=== PATIENT | female | born 1985 | race Caucasian/White ===

== ENCOUNTER 2017-04-03 20:12 | Emergency (ER) | payer MEDICAID, OTHER ==
[~2017-04-03] VITALS: Ht 162.6 cm; Wt 70.5 kg
[2017-04-03 20:15] VITALS: Ht 162.6 cm; Wt 70.5 kg
[2017-04-03 21:50] LABS: ADD UMIC YES; UR ASCORBIC ACID 40 mg/dL (NEGATIVE); UR BILIRUBIN (Dip) NEGATIVE (NEGATIVE); UR BLOOD (Dip) NEGATIVE (NEGATIVE); UR CLARITY SLIGHTLY CLOUDY (CLEAR); UR COLOR YELLOW (YELLOW); UR GLUCOSE (Dip) NEGATIVE (NEGATIVE); UR KETONES (Dip) TRACE mg/dL (NEGATIVE); UR LEUKOCYTE ESTERASE (Dip) 3+ Leu/ul (NEGATIVE); UR MUCUS MODERATE /HPF (NONE SEEN); UR NITRITE (Dip) NEGATIVE (NEGATIVE); UR RBC 5 /HPF (0-5); UR SPECIFIC GRAVITY (Dip) 1.031 (1.003-1.030); UR SQUAMOUS EPITHELIAL CELL MODERATE /HPF (FEW); UR TOTAL PROTEIN (Dip) NEGATIVE (NEGATIVE); UR UROBILINOGEN (Dip) NEGATIVE (NEGATIVE)
[2017-04-03 22:12] LABS: BASOPHILS % 0.4 % (0.0-2.0); EOSINOPHILS # 0.1 10^3/ul (0.0-0.5); EOSINOPHILS % 0.8 % (0.0-7.0); HEMATOCRIT 37.9 % (37.0-47.0); HEMOGLOBIN 12.8 g/dl (12.0-16.0); LYMPHOCYTES # 2.5 10^3/ul (0.8-2.9); MEAN CORPUSCULAR HEMOGLOBIN 29.4 pg (29.0-33.0); MEAN CORPUSCULAR HGB CONC 33.8 g/dl (32.0-37.0); MEAN CORPUSCULAR VOLUME 86.9 fl (82.0-101.0); MEAN PLATELET VOLUME 11.2 fl (7.4-10.4); MONOCYTE # 0.7 10^3/ul (0.3-0.9); MONOCYTES % 7.4 % (0.0-11.0); NEUTROPHIL # 5.7 10^3/ul (1.6-7.5); PLATELET COUNT 255 10^3/UL (140-415); RED BLOOD COUNT 4.36 10^6/ul (4.20-5.40); RED CELL DISTRIBUTION WIDTH 14.5 % (11.5-14.5)
--- NOTE | 2017-04-03 22:15 | ERD ---
ER Documentation Chief Complaint Date/Time DATE: 04/03/17 TIME: 22:11 Chief Complaint 5 weeks , pelvic pain HPI Patient is a 32-year-old female, approximately 5 weeks , , who presents to the emergency department for concerns of right sided pelvic pain and suprapubic pain. Patient states pain started 2 days ago. Patient describes the pain to be episodic in nature. Patient describes the pain to be sharp in nature. Patient denies any vaginal bleeding. Patient does admit to nausea however she denies any vomiting. Patient denies any fevers, chills, upper abdominal pain, dysuria, frequency, urgency or diarrhea. Patient states her [employer] is , however she has not seen them yet for this patient states her last menstrual period was on 02-17-17. ROS All systems reviewed and are negative except as per history of present illness. Medications Home Meds Active Scripts Acetaminophen* (Tylophen*) 500 Mg Capsule, 1 CAP PO Q6H Y for PAIN AND OR ELEVATED TEMP, #20 CAP Prov:MARITA GARNER PA-C 04/03/17 Cephalexin* (Keflex*) 500 Mg Capsule, 500 MG PO TID for 7 Days, CAP Prov:MARITA GARNER PA-C 04/03/17 Allergies Allergies: Coded Allergies: No Known Allergy (Unverified , 04/03/17) PMhx/Soc Medical and Surgical Hx: pt denies Medical Hx, pt denies Surgical Hx History of Surgery: No Anesthesia Reaction: No Hx Neurological Disorder: No Hx Respiratory Disorders: No Hx Cardiac Disorders: No Hx Psychiatric Problems: No Hx Miscellaneous Medical Probl: Yes (OVARIAN CYST) Hx Alcohol Use: No Hx Substance Use: No Hx Tobacco Use: No Smoking Status: Never smoker Physical Exam Vitals Vital Signs Date Time Temp Pulse Resp B/P Pulse Ox O2 Delivery O2 Flow Rate FiO2 04/03/17 20:15 98.6 78 20 124/76 99 Physical Exam GENERAL: Well-developed, well-nourished female. Appears in no acute distress. Speaking in full sentences HEAD: Normocephalic, atraumatic. EYES: Pupils are equally reactive bilaterally. EOMs grossly intact. No conjunctival erythema. ENT: Moist mucous membranes. No uvula deviation. No kissing tonsils. NECK: Supple. No meningismus. Normal range of motion of the neck. LUNG: Clear to auscultation bilaterally. No rhonchi, wheezing, rales or coarse breath sounds. HEART: Regular rate and rhythm. No murmurs, rubs or gallops. ABDOMEN: Soft and nondistended. Tender to palpation in the right pelvic region and suprapubic region positive bowel sounds in all four quadrants. No rebound tenderness, no guarding. (-) McBurney's point tenderness. No CVA tenderness bilaterally. EXTREMITIES: Equal pulses bilaterally. No peripheral clubbing, cyanosis or edema. No unilateral leg swelling. NEUROLOGIC: Alert and oriented. Moving all four extremities without any difficulty. Normal speech. Steady gait. SKIN: Normal color. Warm and dry. No rashes or lesions. Result Diagram: 04/03/172127 Results 24 hrs Laboratory Tests Test 04/03/17 21:18 04/03/17 21:28 Urine Color YELLOW Urine Clarity SLIGHTLY CLOUDY Urine pH 5.0 Urine Specific [place] 1.031 Urine Ketones TRACEmg/dL Urine Nitrite NEGATIVEmg/dL Urine Bilirubin NEGATIVEmg/dL Urine Urobilinogen NEGATIVEmg/dL Urine Leukocyte Esterase 3+Raffi/ul Urine Microscopic RBC 5/HPF Urine Microscopic WBC 38/HPF Urine Squamous Epithelial Cells MODERATE/HPF Urine Mucus MODERATE/HPF Urine Hemoglobin NEGATIVEmg/dL Urine Glucose NEGATIVEmg/dL Urine Total Protein NEGATIVEmg/dl White Blood Count 9.010^3/ul Red Blood Count 4.3610^6/ul Hemoglobin 12.8g/dl Hematocrit 37.9% Mean Corpuscular Volume 86.9fl Mean Corpuscular Hemoglobin 29.4pg Mean Corpuscular Hemoglobin Concent 33.8g/dl Red Cell Distribution Width 14.5% Platelet Count 78490^3/UL Mean Platelet Volume 11.2fl Neutrophils % 63.0% Lymphocytes % 28.0% Monocytes % 7.4% Eosinophils % 0.8% Basophils % 0.4% Nucleated Red Blood Cells % 0.0/100WBC Neutrophils # 5.710^3/ul Lymphocytes # 2.510^3/ul Monocytes # 0.710^3/ul Eosinophils # 0.110^3/ul Basophils # 0.010^3/ul Nucleated Red Blood Cells # 0.010^3/ul Beta HCG, Quantitative 171.3mIU/ml Procedures/MDM ED COURSE: The patient was stable throughout ED course. I kept the patient and/or family informed of laboratory and diagnostic imaging results throughout the ED course. DIAGNOSTIC IMAGING: Read by radiologist. Patient: LINDSEY LOOMIS : 1985 Age: 32 Sex: F MR #: [id number] DOS: 04/03/17 2105 Ordering MD: MARITA GARNER PA-C Location: [facility] Room/Bed: PROCEDURE: ULTRASOUND OBSTETRICAL CLINICAL INDICATION: 32-year-old female with pelvic pain. TECHNIQUE: Multiple sonographic images of the pelvis were obtained. The images were reviewed on a PACS workstation. COMPARISON: None. FINDINGS: The uterus is visualized and measures 7.6 x 5.6 x 7.5 cm. There is a single intrauterine gestation. The mean sac diameter is 1.36 cm. This yields an estimated gestational age of 6 weeks and 0 days. The estimated date of delivery is November 27, 2017. There is no evidence for a yolk sac or pole. There is no evidence for free fluid. The right ovary has a normal echotexture and measures 3.1 x 2.1 x 1 point a cm. The left ovary has a normal echotexture and measures 3.4 x 1.7 x 2.0 cm. There is normal flow to the ovaries bilaterally. No adnexal masses are noted. IMPRESSION: Single early intrauterine gestation of approximately 6 weeks 0 days without evidence for a yolk sac or pole. Clinical correlation and follow-up ultrasound is suggested. .Andry Mari MD, MD Date Time Electronically viewed and signed by .Andry Mari MD, MD on 04/03/2017 23:00 .M/ CC: MARITA GARNER PA-C MEDICAL DECISION MAKING: Patient is a 32-year-old female, , approximately 5 weeks , presents emergency department with concerns of pelvic pain 2 days. Patient denies any vaginal bleeding. Her last menstrual period was on 02-17-17. Vital signs were reviewed. Patient was afebrile. Patient was hemodynamically stable. Urine test was negative. CBC showed no evidence of systemic infection or severe anemia. Blood type was O+. Patient's beta-hCG was noted to be 171.3. CBC showed no evidence of systemic infection or severe anemia. Urinalysis showed 3+ leukocyte esterase, 38 WBCs. I Pelvic US showed Single early intrauterine gestation of approximately 6 weeks 0 days without evidence for a yolk sac or pole. Clinical correlation and follow-up ultrasound is suggested. I discussed the patient's beta-hCG levels and ultrasound findings with her. I explained to the patient that her beta-hCG levels do not correlate to her ultrasound findings. At the gestational age of 6 week beta-hCG should be between 1083 and 56,000. I explained to the patient that her findings may be consistent with a possible miscarriage. Patient was advised to return to the emergency department in 2 days for repeat beta-hCG and ultrasound. She was advised to return sooner for any new or worsening symptoms including bleeding, severe pain, nausea, vomiting or LOC. Patient understands and agrees with this plan. At this time, patient's presentation is most consistent with threatened and UTI. Able to rule out ectopic at this time. Low suspicion for molar , subchorionic hematoma, complete , placental abruption, placenta previa, vasa previa, uterine rupture, and embryonic . PRESCRIPTIONS: Keflex, Tylenol DISCHARGE: At this time, patient is stable for discharge and outpatient management. She was given a copy of all imaging studies and blood work obtained today. I had a conversation at length with the patient about the concerns during the 1st trimester of . Patient and/or family understands that her vaginal bleeding can be a normal finding or a sign of miscarriage. I have instructed the patient to follow-up with her OBGYN or return to the emergency department in 1-2 days for further monitoring including a repeat b-HCG level and ultrasound. I have instructed the patient to promptly return to the ER at any time for any new or worsening symptoms including increased pain, nausea, vomiting, continued bleeding, weakness, syncope or fever. The patient and/or family expressed understanding of and agreement with this plan. All questions were answered. Home care instructions were provided. Disclaimer Departure Diagnosis: Primary Impression: Pelvic pain complicating Condition: Stable Patient Instructions: Vaginal Bleed in , , Established, Normal Symptoms Referrals: NADIR DELUCA MD (PCP) Additional Instructions: Call your primary care doctor/OBGYN TOMORROW for an appointment during the next 1-2 days.See the doctor sooner or return here if your condition worsens before your appointment time. Return in 2 days for repeat beta-hCG. Unable to rule out ectopic at this time. MARITA GARNER PA-C Apr 03, 2017 22:15
--- NOTE | 2017-04-03 23:00 | RADRPT ---
PROCEDURE: ULTRASOUND OBSTETRICAL CLINICAL INDICATION: 32-year-old female with pelvic pain. TECHNIQUE: Multiple sonographic images of the pelvis were obtained. The images were reviewed on a PACS workstation. COMPARISON: None. FINDINGS: The uterus is visualized and measures 7.6 x 5.6 x 7.5 cm. There is a single intrauterine gestation. The mean sac diameter is 1.36 cm. This yields an estimated gestational age of 6 weeks and 0 days. T he estimated date of delivery is November 27, 2017. There is no evidence for a yolk sac or pole. T here is no evidence for free fluid. The right ovary has a normal echotexture and measures 3.1 x 2.1 x 1 point a cm. The left ovary has a normal echotexture and measures 3.4 x 1.7 x 2.0 cm. There is n ormal flow to the ovaries bilaterally. No adnexal masses are noted. IMPRESSION: Single early intrauterine gestation of approximately 6 weeks 0 days without evidence for a yolk sac or pole. Clinical correlation and follow-up ultrasound is suggested. .Andry Mari MD, MD Date Time Electronically viewed and signed by .Andry Mari MD, on 04/03/2017 23:00 .M/
[2017-04-03] MEDS ORDERED: CEPH-443 PO (23:33)
[2017-04-03] MEDS ORDERED: ACET500C5 PO (23:34)
== END 2017-04-03 23:42 | disposition home or self-care (01) ==
LOC: FTE 20:12
DX: O26.891 Other specified pregnancy related conditions, first trimester (principal); R10.2 Pelvic and perineal pain; Z3A.01 Less than 8 weeks gestation of pregnancy
CPT/HCPCS: 36415; 76801; 76817; 81001; 84702; 85025; 86900; 86901; Z7502

== ENCOUNTER 2017-04-11 19:57 | Emergency (ER) | payer MEDICAID ==
[~2017-04-11] VITALS: Ht 162.6 cm; Wt 71.5 kg
[~2017-04-11 19:57] MED LIST: ACET500C5 PO; CEPH-443 PO
[2017-04-11 20:14] VITALS: Ht 162.6 cm; Wt 71.5 kg
[2017-04-11] MEDS ORDERED: ACETAMINOPHEN 325 MG TAB PO STA (21:46)
[2017-04-11] MEDS ORDERED: SOD CHLORIDE 0.9% 1,000 ML IV STA (21:46)
[2017-04-11] MEDS ORDERED: ONDANSETRON 4 MG INJ IV STA ×2 (21:46→23:54)
--- NOTE | 2017-04-11 21:57 | ERD ---
ER Documentation Chief Complaint Date/Time DATE: 04/11/17 TIME: 21:50 Chief Complaint Bilateral pelvic pain x6 days, 6 weeks HPI 32-year-old otherwise healthy female who is approximately 6 weeks presents the emergency department for complaints of bilateral pelvic cramping 6 days. Patient states the pain is intermittent and rates it at a 6 out of 10 cramping pain. She denies any exacerbating or alleviating factors. Patient denies any vaginal bleeding, vaginal discharge, dysuria, hematuria, nausea, vomiting, diarrhea, fever or chills. Patient states she is attempted to treat her symptoms with Tylenol at home with mild relief. She notes associated nausea. Patient also complains about an itchy rash 2 weeks which is constant and located at the left shoulder and right hip region. Patient has attempted to treat her symptoms with hydrocortisone cream without relief. She denies any difficulty breathing, or swelling. ROS All systems reviewed and are negative except as per history of present illness. Medications Home Meds Active Scripts Acetaminophen* (Tylophen*) 500 Mg Capsule, 1 CAP PO Q6H Y for PAIN AND OR ELEVATED TEMP, #20 CAP Prov:MARITA GARNER PA-C 04/03/17 Cephalexin* (Keflex*) 500 Mg Capsule, 500 MG PO TID for 7 Days, CAP Prov:MARITA GARNER PA-C 04/03/17 Allergies Allergies: Coded Allergies: No Known Allergy (Unverified , 04/03/17) PMhx/Soc History of Surgery: No Anesthesia Reaction: No Hx Neurological Disorder: No Hx Respiratory Disorders: No Hx Cardiac Disorders: No Hx Psychiatric Problems: No Hx Miscellaneous Medical Probl: Yes (OVARIAN CYST) Hx Alcohol Use: No Hx Substance Use: No Hx Tobacco Use: No Smoking Status: Never smoker Physical Exam Vitals Vital Signs Date Time Temp Pulse Resp B/P Pulse Ox O2 Delivery O2 Flow Rate FiO2 04/11/17 20:14 97.9 75 18 120/62 100 Physical Exam Const: Well-developed, well-nourished, no acute distress Head: Atraumatic Eyes: Normal Conjunctiva ENT: Normal External Ears, Nose and Mouth. No swelling of the lips, tongue, posterior pharynx clear without erythema or swelling bilaterally. Neck: Full range of motion..~ No meningismus. Resp: Clear to auscultation bilaterally. No stridor, wheezes, rhonchi, rales Cardio: Regular rate and rhythm, no murmurs Abd: Soft, non tender, non distended. Normal bowel sounds Skin: Mildly erythematous well demarcated plaque located at the left shoulder as well as right hip region. Left shoulder measures approximately 10 cm in diameter. A right hip approximately 5 cm. No swelling or fluctuance. No tenderness to palpation. No vesicles. Back: No midline or flank tenderness Ext: No cyanosis, or edema Neur: Awake and alert Psych: Normal Mood and Affect Result Diagram: 04/11/17219904/11/172199 Results 24 hrs Laboratory Tests Test 04/11/17 21:52 04/11/17 22:00 Urine Color YELLOW Urine Clarity CLOUDY Urine pH 8.0 Urine Specific [place] 1.019 Urine Ketones NEGATIVEmg/dL Urine Nitrite NEGATIVEmg/dL Urine Bilirubin NEGATIVEmg/dL Urine Urobilinogen NEGATIVEmg/dL Urine Leukocyte Esterase 1+Raffi/ul Urine Microscopic RBC 3/HPF Urine Microscopic WBC 3/HPF Urine Squamous Epithelial Cells FEW/HPF Urine Bacteria FEW/HPF Urine Hemoglobin NEGATIVEmg/dL Urine Glucose NEGATIVEmg/dL Urine Total Protein NEGATIVEmg/dl White Blood Count 10.310^3/ul Red Blood Count 4.2410^6/ul Hemoglobin 12.1g/dl Hematocrit 37.1% Mean Corpuscular Volume 87.5fl Mean Corpuscular Hemoglobin 28.5pg Mean Corpuscular Hemoglobin Concent 32.6g/dl Red Cell Distribution Width 14.6% Platelet Count 68963^3/UL Mean Platelet Volume 11.1fl Neutrophils % 63.7% Lymphocytes % 28.2% Monocytes % 6.4% Eosinophils % 0.8% Basophils % 0.6% Nucleated Red Blood Cells % 0.0/100WBC Neutrophils # (Manual) 710^3/ul Lymphocytes # 2.910^3/ul Monocytes # 0.710^3/ul Eosinophils # 0.110^3/ul Basophils # 0.110^3/ul Nucleated Red Blood Cells # 0.010^3/ul Sodium Level 138mmol/L Potassium Level 3.8mmol/L Chloride Level 102mmol/L Carbon Dioxide Level 25mmol/L Anion Gap 15 Blood Urea Nitrogen 11mg/dl Creatinine 0.76mg/dl Glucose Level 97mg/dl Calcium Level 9.2mg/dl Total Bilirubin 0.1mg/dl Direct Bilirubin 0.00mg/dl Indirect Bilirubin 0.1mg/dl Aspartate Amino Transf (AST/SGOT) 16IU/L Alanine Aminotransferase (ALT/SGPT) 31IU/L Alkaline Phosphatase 127IU/L Total Protein 7.6g/dl Albumin 4.5g/dl Globulin 3.10g/dl Albumin/Globulin Ratio 1.45 Beta HCG, Quantitative 2431.1mIU/ml Current Medications Medications (Trade) Dose Ordered Sig/Yoon Route PRN Reason Start Time Stop Time Status Last Admin Dose Admin Sodium Chloride (NS) 1,000 ml @ 1,000 mls/hr Q1H STAT IV 04/11/17 21:46 04/11/17 22:45 DC 04/11/17 22:37 Acetaminophen (Tylenol Tab) 650 mg ONCE STAT PO 04/11/17 21:46 04/11/17 21:50 DC 04/11/17 22:37 Ondansetron HCl (Zofran Inj) 4 mg ONCE STAT IV 04/11/17 21:46 04/11/17 21:50 DC 04/11/17 22:37 Procedures/MDM This is a 32-year-old approximately 6 weeks female who presents emergency department for complaints of bilateral pelvic cramping 6 days which is associated with nausea. Patient denies fever, chills, vaginal discharge, vaginal bleeding, dysuria. Patient also reports itchy rash 2 weeks which is isolated to her right shoulder and left hip. On physical exam, patient well- appearing, nontoxic and in no acute distress. Patient's vital signs within normal limits upon arrival. Skin exam with evidence of well demarcated slightly erythematous plaque to the right superior shoulder region as well as right hip region which is nonpainful to touch. There is no fluctuance, erythema or major swelling of the joints. Rash appears to be eczematous. Physical exam otherwise unremarkable. CBC showed no evidence of systemic infection or severe anemia. CMP showed no evidence of electrolyte abnormalities, severe acidosis, alkalosis , renal failure, or liver disease. Serum hCG quantitative 2431.1 UA showed no evidence of acute infection or hematuria. Patient received a bolus of fluids as well as Zofran and Tylenol while in the emergency department Pelvic ultrasound revealed no intrauterine which was identifiable. Equivocal intrauterine gestational sac was found to be smaller than the study from 04/03/2017, and the findings likely reflect a nonviable , spontaneous , or blighted ovum. Both ovaries were not visualized however an ectopic is not excluded but there were no suspicious findings on ultrasound. At this time low suspicion ovarian torsion, tubo-ovarian abscess, pelvic inflammatory disease, urinary tract infection, pyelonephritis, severe systemic illness or sepsis. Instructed the patient to follow-up in 48 hours either here or with her [employer] specialist for a repeat ultrasound and beta hCG screening. Patient to return sooner if symptoms worsen. Patient expressed understanding of and agreement with plan. Based on patient's history of present illness and physical examination the decision was made to discharge. The patient was re-evaluated after ED treatment and stabilizing measures, and symptoms have improved. There is no evidence of life threatening injuries or illnesses at this time. On re-examination, patient resting in no distress, stable vital signs, reports feeling better and safe for discharge with outpatient follow up with PMD in 1-2 days. Patient given return precautions. Departure Diagnosis: Primary Impression: Acute pain in female pelvis Additional Impressions: Pelvic pain affecting Nausea Rash PALAK BUSTILLO PA-C Apr 11, 2017 21:57
[2017-04-11 22:18] LABS: BASOPHIL # 0.1 10^3/ul (0.0-0.1); BASOPHILS % 0.6 % (0.0-2.0); EOSINOPHILS # 0.1 10^3/ul (0.0-0.5); EOSINOPHILS % 0.8 % (0.0-7.0); HEMATOCRIT 37.1 % (37.0-47.0); HEMOGLOBIN 12.1 g/dl (12.0-16.0); LYMPHOCYTES # 2.9 10^3/ul (0.8-2.9); LYMPHOCYTES % 28.2 % (15.0-51.0); MEAN CORPUSCULAR HEMOGLOBIN 28.5 pg (29.0-33.0); MEAN CORPUSCULAR HGB CONC 32.6 g/dl (32.0-37.0); MEAN CORPUSCULAR VOLUME 87.5 fl (82.0-101.0); MEAN PLATELET VOLUME 11.1 fl (7.4-10.4); MONOCYTE # 0.7 10^3/ul (0.3-0.9); MONOCYTES % 6.4 % (0.0-11.0); NEUTROPHILS % 63.7 % (39.0-77.0); PLATELET COUNT 227 10^3/UL (140-415); RED BLOOD COUNT 4.24 10^6/ul (4.20-5.40); RED CELL DISTRIBUTION WIDTH 14.6 % (11.5-14.5); WHITE BLOOD COUNT 10.3 10^3/ul (4.8-10.8)
[2017-04-11 22:37] LABS: ALBUMIN 4.5 g/dl (3.3-4.9); ALBUMIN/GLOBULIN RATIO 1.45; BILIRUBIN,INDIRECT 0.1 mg/dl (0-1.1); BILIRUBIN,TOTAL 0.1 mg/dl (0.2-1.3); CALCIUM 9.2 mg/dl (8.4-10.2); CREATININE 0.76 mg/dl (0.44-1.00); POTASSIUM 3.8 mmol/L (3.5-5.1); TOTAL PROTEIN 7.6 g/dl (6.1-8.1)
[2017-04-11 22:58] LABS: ADD UMIC YES; UR ASCORBIC ACID NEGATIVE (NEGATIVE); UR BACTERIA FEW /HPF (NONE SEEN); UR BILIRUBIN (Dip) NEGATIVE (NEGATIVE); UR BLOOD (Dip) NEGATIVE (NEGATIVE); UR CLARITY CLOUDY (CLEAR); UR COLOR YELLOW (YELLOW); UR GLUCOSE (Dip) NEGATIVE (NEGATIVE); UR KETONES (Dip) NEGATIVE (NEGATIVE); UR LEUKOCYTE ESTERASE (Dip) 1+ Leu/ul (NEGATIVE); UR NITRITE (Dip) NEGATIVE (NEGATIVE); UR RBC 3 /HPF (0-5); UR SPECIFIC GRAVITY (Dip) 1.019 (1.003-1.030); UR SQUAMOUS EPITHELIAL CELL FEW /HPF (FEW); UR TOTAL PROTEIN (Dip) NEGATIVE (NEGATIVE); UR UROBILINOGEN (Dip) NEGATIVE (NEGATIVE)
--- NOTE | 2017-04-11 23:17 | RADRPT ---
PROCEDURE: US OB. CLINICAL INDICATION: Positive , vaginal bleeding TECHNIQUE: Transabdominal and transvaginal views of the pelvis are available for review. COMPARISON: 04/03/2017 FINDINGS: Uterus: Normal; 10.8 x 8 x 5.8 cm. There is no evidence of myometrial mass. Endometrial cavity: No intrauterine is identified. Heterogeneous echotexture is present and an equivocal ovoid anechoic structure is smaller than on the previous study possibly a gestation al sac measuring 7 mm. This would correspond to a gestational age of 5 weeks 1 day less than on the prior study. No yolk sac or pole is present. Right ovary / adnexa: Ovarian size is normal measuring 3 x 2 x 1.4 cm and there is no evidence of a dnexal mass. Normal blood flow on Doppler interrogation is present. Left ovary/adnexa: Ovarian size is normal measuring 3.4 x 2.5 x 2.3 cm with no evidence of ovarian or adnexal mass. Normal blood flow seen on Doppler interrogation. Likely corpus luteum cyst is now suggested estimated at 2 cm Cul-de-sac: A small amount of free fluid is identified possibly physiologic. RPTAT:HJJR IMPRESSION: 1. No intrauterine identified. Equivocal intrauterine gestational sac is smaller than the study of 04/03/2017 and the findings likely reflect a nonviable , spontaneous or b lighted ovum. 2. Ectopic is not excluded, but there are no suspicious findings at this time. Correlatio n with serial beta HCGs is suggested with followup as clinically indicated. 3. Likely incidental corpus luteum cyst of the left ovary. 4. Trace amount of free fluid in the cul-de-sac is now demonstrated. Physician Tyler Date Time Electronically viewed and signed by Physician Tyler on 04/11/2017 23:16 /
[2017-04-11] MEDS ORDERED: morphine 4 MG/ML VIAL IV STA (23:54)
[2017-04-12] MEDS ORDERED: ACET325T33 PO (00:03)
[2017-04-12] MEDS ORDERED: ONDA4TAB14 PO (00:03)
[2017-04-12] MEDS ORDERED: TRIA15CR55 TOP (00:04)
[2017-04-12 00:46] VITALS: BP 118/62; PULSE 72; RESP 18; TEMP 98.3
== END 2017-04-12 00:47 | disposition home or self-care (01) ==
LOC: FTE 19:57
DX: O26.891 Other specified pregnancy related conditions, first trimester (principal); R10.2 Pelvic and perineal pain; O99.89 Other specified diseases and conditions complicating pregnancy, childbirth and the puerperium; R11.0 Nausea; R21 Rash and other nonspecific skin eruption; Z3A.01 Less than 8 weeks gestation of pregnancy
CPT/HCPCS: 36415; 76801; 76817; 80053; 81001; 84702; 85025; 96374; J2405; J7030; Z7502; Z7610

== ENCOUNTER 2017-05-18 21:47 | Emergency (ER) | payer MEDICAID ==
[~2017-05-18] VITALS: Ht 154.9 cm; Wt 71.0 kg
[~2017-05-18 21:47] MED LIST changes: +ACET325T33 PO; +ONDA4TAB14 PO; +TRIA15CR55 TOP
[2017-05-18 21:55] VITALS: Ht 154.9 cm; Wt 71.0 kg
[2017-05-19] MEDS ORDERED: SOD CHLORIDE 0.9% 1,000 ML IV STA (01:49)
[2017-05-19] MEDS ORDERED: ACETAMINOPHEN 325 MG TAB PO STA (01:49)
--- NOTE | 2017-05-19 02:42 | ERD ---
ER Documentation Chief Complaint Date/Time DATE: 05/19/17 TIME: 02:40 Chief Complaint pelvic pain today with vaginal spotting 12 weeks HPI 32-year-old female resents here in emergency department for complaints of pelvic pain, vaginal spotting and bleeding chills and fever that started today. Patient does complain of some dysuria, burning pain, 4/10 scale, is worse upon urination. She is approximately 12 weeks . Patient denies any flank pain. Patient denies any nausea or vomiting. ROS All systems reviewed and are negative except as per history of present illness. Medications Home Meds Active Scripts Triamcinolone Acetonide* (Kenalog*) 0.1%-15GM Cr, 1 APPLIC TOP BID, #1 TUB Prov:PALAK BUSTILLO PA-C 04/12/17 Ondansetron (Ondansetron Odt) 4 Mg Tab.rapdis, 4 MG PO Q6H Y for NAUSEA AND/OR VOMITING, #20 TAB Prov:PALAK BUSTILLO PA-C 04/12/17 Acetaminophen* (Tylenol*) 325 Mg Tablet, 2 TAB PO Q6 Y for PAIN AND OR ELEVATED TEMP, #20 TAB Prov:PALAK BUSTILLO PA-C 04/12/17 Acetaminophen* (Tylophen*) 500 Mg Capsule, 1 CAP PO Q6H Y for PAIN AND OR ELEVATED TEMP, #20 CAP Prov:MARITA GARNER PA-C 04/03/17 Cephalexin* (Keflex*) 500 Mg Capsule, 500 MG PO TID for 7 Days, CAP Prov:MARITA GARNER PA-C 04/03/17 Allergies Allergies: Coded Allergies: No Known Allergy (Unverified , 04/03/17) PMhx/Soc Medical and Surgical Hx: pt denies Medical Hx, pt denies Surgical Hx History of Surgery: No Anesthesia Reaction: No Hx Neurological Disorder: No Hx Respiratory Disorders: No Hx Cardiac Disorders: No Hx Psychiatric Problems: No Hx Miscellaneous Medical Probl: Yes (OVARIAN CYST) Hx Alcohol Use: No Hx Substance Use: No Hx Tobacco Use: No Smoking Status: Never smoker FmHx Family History: No coronary disease, No diabetes, No other Physical Exam Vitals Vital Signs Date Time Temp Pulse Resp B/P Pulse Ox O2 Delivery O2 Flow Rate FiO2 05/18/17 21:55 100.0 86 20 122/66 99 Physical Exam GENERAL: The patient is well developed and appropriate for usual state of health, in no apparent distress. CHEST: Clear to auscultation bilaterally. There are no rales, wheezes or rhonchi. HEART: Regular rate and rhythm. No murmurs, clicks, rubs or gallops. No S3 or S4. ABDOMEN: Soft, nontender and nondistended. Good bowel sounds. No rebound or guarding. No gross peritonitis. No gross organomegaly or masses. No Haskins sign or McBurney point tenderness. BACK: No midline or flank tenderness. EXTREMITIES: Equal pulses bilaterally. There is no peripheral clubbing, cyanosis or edema. No focal swelling or erythema. Full range of motion. Grossly neurovascularly intact. NEURO: Alert and oriented. Cranial nerves 2-12 intact. Motor strength in all 4 extremities with 5/5 strength. Sensation grossly intact. Normal speech and gait. SKIN: There is no apparent rash or petechia. The skin is warm and dry. HEMATOLOGIC AND LYMPHATIC: There is no evidence of excessive bruising or lymphedema. No gross cervical, axillary, or inguinal lymphadenopathy. Result Diagram: 05/19/17 0200 Results 24 hrs Laboratory Tests Test 05/19/17 02:00 White Blood Count 10.810^3/ul Red Blood Count 4.1810^6/ul Hemoglobin 12.5g/dl Hematocrit 36.4% Mean Corpuscular Volume 87.1fl Mean Corpuscular Hemoglobin 29.9pg Mean Corpuscular Hemoglobin Concent 34.3g/dl Red Cell Distribution Width 13.8% Platelet Count 00503^3/UL Mean Platelet Volume 11.1fl Neutrophils % 72.7% Lymphocytes % 17.3% Monocytes % 7.6% Eosinophils % 1.6% Basophils % 0.4% Nucleated Red Blood Cells % 0.0/100WBC Neutrophils # 7.810^3/ul Lymphocytes # 1.910^3/ul Monocytes # 0.810^3/ul Eosinophils # 0.210^3/ul Basophils # 0.010^3/ul Nucleated Red Blood Cells # 0.010^3/ul Urine Color YELLOW Urine Clarity SLIGHTLY CLOUDY Urine pH 6.0 Urine Specific [place] 1.015 Urine Ketones TRACEmg/dL Urine Nitrite NEGATIVEmg/dL Urine Bilirubin NEGATIVEmg/dL Urine Urobilinogen NEGATIVEmg/dL Urine Leukocyte Esterase 2+Raffi/ul Urine Microscopic RBC 2/HPF Urine Microscopic WBC 9/HPF Urine Squamous Epithelial Cells MODERATE/HPF Urine Bacteria FEW/HPF Urine Mucus FEW/HPF Urine Hemoglobin NEGATIVEmg/dL Urine Glucose NEGATIVEmg/dL Urine Total Protein NEGATIVEmg/dl Beta HCG, Quantitative 29705.0mIU/ml Current Medications Medications (Trade) Dose Ordered Sig/Yoon Route PRN Reason Start Time Stop Time Status Last Admin Dose Admin Sodium Chloride (NS) 1,000 ml @ 1,000 mls/hr Q1H STAT IV 05/19/17 01:49 05/19/17 02:48 DC 05/19/17 02:16 Acetaminophen 650 mg 650 mg ONCE STAT PO 05/19/17 01:49 05/19/17 01:50 DC 05/19/17 02:16 Ceftriaxone Sodium (Rocephin) 50 ml @ 100 mls/hr ONCE ONCE IVPB 05/19/17 04:00 05/19/17 04:29 05/19/17 04:12 Normal saline IV bolus was given here in emergency department for rehydration, patient tolerated IV fluids. Patient was given medicines for fever control here in the emergency department. After treatment, patient temperature improved and lower. Patient appears well and is hemodynamically stable. PROCEDURE: ULTRASOUND OBSTETRICAL CLINICAL INDICATION: 32-year-old female with pelvic pain. TECHNIQUE: Multiple sonographic images of the pelvis were obtained. The images were reviewed on a PACS workstation. COMPARISON: None. FINDINGS: There is a single intrauterine gestation. The mean sac diameter is 3.58 cm. There is a pole present with a crown-rump length of 4.11 cm. This yields an estimated gestational age of 10 weeks and 0 days. 8 of delivery is December 15, 2017. Cardiac activity is present at 174 beats per minute. There is no evidence for free fluid. The ovaries were not visualized bilaterally. No adnexal masses are noted. IMPRESSION: 1. Single viable intrauterine gestation of approximately 10 weeks 0 days. The estimated date of delivery is December 15, 2017. 2. The ovaries were not visualized. .Andry Mari MD, Date Time Electronically viewed and signed by .Andry Mari MD, MD on 05/19/2017 03:28 .M/ CC: CLAUDE ESQUIVEL ARCHITECTURE DEPARTMENT CHAIR Procedures/MDM Medical Decision Making: Patients symptoms are consistent with urinary tract infection. There is low suspicion for pyelonephritis. There is low suspicion for abdominal emergencies at this time. Patients abdominal exam is normal. There is low suspicion for sepsis. Patient appears well and is hemodynamically stable. Patient is a viable noted in the ultrasound, no subchorionic bleed noted. Patients vaginal bleeding is most likely consistent of possible threatened . Patient does not show any evidence of hypovolemic shock. Patients hemoglobin and hematocrit is stable. There is low suspicion for ectopic . PACO results show viable . BetaHCG Quantitative is normal for .The patient is Rh+, does not need RhoGAM this time. There is no signs of symptoms of dehydration. There is low suspicion for sepsis. Patient appears well and is hemodynamically stable. Disposition: Home. Condition: Stable Rx: Keflex, Tylenol Instructions: Patient is advised to do bed rest, avoid heavy lifting, and avoid having sex until cleared by OB doctor. Patient is advised to follow up with OB doctor or here at the ER in 48 hours for reevaluation of symptoms, repeat beta HCG quantitative and ultrasound. Patient is advised that is symptoms are worst, severe bleeding, dizziness, severe abdominal pain, fever, worst signs and symptoms to return to the emergency department immediately. Disclaimer: Inadvertent spelling and grammatical errors are likely due to EHR/ dictation software use and do not reflect on the overall quality of patient care. Also, please note that the electronic time recorded on this note does not necessarily reflect the actual time of the patient encounter. Disclaimer: Inadvertent spelling and grammatical errors are likely due to EHR/ dictation software use and do not reflect on the overall quality of patient care. Also, please note that the electronic time recorded on this note does not necessarily reflect the actual time of the patient encounter. Departure Diagnosis: Primary Impression: UTI (urinary tract infection) Urinary tract infection type: acute cystitis Hematuria presence: without hematuria Qualified Code: N30.00 - Acute cystitis without hematuria Additional Impressions: Vaginal bleeding Intrauterine Condition: Stable Patient Instructions: Understanding Urinary Tract Infections (UTIs), Vaginal Bleed in Additional Instructions: Patient is advised to do bed rest, avoid heavy lifting, and avoid having sex until cleared by OB doctor. Patient is advised to follow up with OB doctor or here at the ER in 48 hours for reevaluation of symptoms, repeat beta HCG quantitative and ultrasound. Patient is advised that is symptoms are worst, severe bleeding, dizziness, severe abdominal pain, fever, worst signs and symptoms to return to the emergency department immediately. CLAUDE ESQUIVEL NP May 19, 2017 02:42
[2017-05-19 02:47] LABS: BASOPHILS % 0.4 % (0.0-2.0); EOSINOPHILS # 0.2 10^3/ul (0.0-0.5); EOSINOPHILS % 1.6 % (0.0-7.0); HEMATOCRIT 36.4 % (37.0-47.0); HEMOGLOBIN 12.5 g/dl (12.0-16.0); LYMPHOCYTES # 1.9 10^3/ul (0.8-2.9); LYMPHOCYTES % 17.3 % (15.0-51.0); MEAN CORPUSCULAR HEMOGLOBIN 29.9 pg (29.0-33.0); MEAN CORPUSCULAR HGB CONC 34.3 g/dl (32.0-37.0); MEAN CORPUSCULAR VOLUME 87.1 fl (82.0-101.0); MEAN PLATELET VOLUME 11.1 fl (7.4-10.4); MONOCYTE # 0.8 10^3/ul (0.3-0.9); MONOCYTES % 7.6 % (0.0-11.0); NEUTROPHIL # 7.8 10^3/ul (1.6-7.5); NEUTROPHILS % 72.7 % (39.0-77.0); PLATELET COUNT 235 10^3/UL (140-415); RED BLOOD COUNT 4.18 10^6/ul (4.20-5.40); RED CELL DISTRIBUTION WIDTH 13.8 % (11.5-14.5); WHITE BLOOD COUNT 10.8 10^3/ul (4.8-10.8)
[2017-05-19 03:16] LABS: ADD UMIC YES; UR ASCORBIC ACID NEGATIVE (NEGATIVE); UR BACTERIA FEW /HPF (NONE SEEN); UR BILIRUBIN (Dip) NEGATIVE (NEGATIVE); UR BLOOD (Dip) NEGATIVE (NEGATIVE); UR CLARITY SLIGHTLY CLOUDY (CLEAR); UR COLOR YELLOW (YELLOW); UR GLUCOSE (Dip) NEGATIVE (NEGATIVE); UR KETONES (Dip) TRACE mg/dL (NEGATIVE); UR LEUKOCYTE ESTERASE (Dip) 2+ Leu/ul (NEGATIVE); UR MUCUS FEW /HPF (NONE SEEN); UR NITRITE (Dip) NEGATIVE (NEGATIVE); UR RBC 2 /HPF (0-5); UR SPECIFIC GRAVITY (Dip) 1.015 (1.003-1.030); UR SQUAMOUS EPITHELIAL CELL MODERATE /HPF (FEW); UR TOTAL PROTEIN (Dip) NEGATIVE (NEGATIVE); UR UROBILINOGEN (Dip) NEGATIVE (NEGATIVE)
--- NOTE | 2017-05-19 03:28 | RADRPT ---
PROCEDURE: ULTRASOUND OBSTETRICAL CLINICAL INDICATION: 32-year-old female with pelvic pain. TECHNIQUE: Multiple sonographic images of the pelvis were obtained. The images were reviewed on a PACS workstation. COMPARISON: None. FINDINGS: There is a single intrauterine gestation. The mean sac diameter is 3.58 cm. There is a pole p resent with a crown-rump length of 4.11 cm. This yields an estimated gestational age of 10 weeks and 0 days. 8 of delivery is December 15, 2017. Cardiac activity is present at 174 beats per minute. There is no evidence for free fluid. The ovaries were not visualized bilaterally. No adnexal masses are noted. IMPRESSION: 1. Single viable intrauterine gestation of approximately 10 weeks 0 days. The estimated date of de livery is December 15, 2017. 2. The ovaries were not visualized. .Andry Mari MD, Date Time Electronically viewed and signed by .Andry Mari MD, on 05/19/2017 03:28 .Jesus/
[2017-05-19] MEDS ORDERED: CEFTRIAXONE 1 GM/50 ML (PMX) 50 ML IVPB ONE (04:00)
[2017-05-19] MEDS ORDERED: CEPH-443 PO (04:17)
[2017-05-19] MEDS ORDERED: ACET500C5 PO (04:17)
[2017-05-19 04:43] VITALS: BP 118/71; PULSE 85; RESP 18; TEMP 98.1
== END 2017-05-19 04:54 | disposition home or self-care (01) ==
LOC: FTE 21:47
DX: O26.891 Other specified pregnancy related conditions, first trimester (principal); O23.41 Unspecified infection of urinary tract in pregnancy, first trimester; O20.9 Hemorrhage in early pregnancy, unspecified; R10.2 Pelvic and perineal pain; Z3A.10 10 weeks gestation of pregnancy
CPT/HCPCS: 36415; 76801; 81001; 84702; 85025; 86900; 86901; 96374; J0696; J7030; Z7502; Z7610

== ENCOUNTER 2017-09-21 21:27 | Outpatient (CLI) | END 2017-09-21 23:57 | disposition home or self-care (01) ==

== ENCOUNTER 2017-12-03 22:39 | Inpatient (IN) | END 2017-12-06 17:05 | disposition home or self-care (01) | DRG 767 ==